=== PATIENT | female | born 1970 | race Caucasian/White ===

== ENCOUNTER 2020-06-28 00:46 | Emergency (ER) | payer OTHER ==
[~2020-06-28 00:46] MED LIST: AZITHROMYCIN250 MG PO; BUSPAR5 MG PO; CYMBALTA20 MG PO; IBUPROFEN800 MG PO; KEFLEX250 MG PO; LASIX20 MG PO; MEDROL 4MG DOSEP4 MG PO; METFORMIN HCL500 MG PO; NAPROXEN500 MG PO; NORCO 5-325 TA1 EAC1 PO; NORCO 5-325 TA1 EACH PO; NORTRIPTYLINE H50 MG PO; PERCOCET 5-3251 EACH PO; ROBAXIN750 MG PO; SYNTHROID125 MCG PO
[2020-06-28] MEDS ORDERED: BACTRIM DS TAB1 EACH PO (01:15)
== END 2020-06-28 01:30 | disposition home or self-care (01) ==
LOC: FER 00:46
DX: H11.31 Conjunctival hemorrhage, right eye (principal); L72.3 Sebaceous cyst; E11.9 Type 2 diabetes mellitus without complications; F17.200 Nicotine dependence, unspecified, uncomplicated; Z79.84 Long term (current) use of oral hypoglycemic drugs
CPT/HCPCS: 99282

== ENCOUNTER 2021-02-09 21:24 | Emergency (ER) | payer OTHER ==
[~2021-02-09 21:24] MED LIST changes: +BACTRIM DS TAB1 EACH PO
[2021-02-09 22:46] LABS: BASOPHIL 1.5 % (0-2); EOSINOPHIL 2.8 % (0-5); HCT 45.5 % (37.0-47.0); HGB 15.9 g/dl (12.5-16.0); LYMPHOCYTE 45.8 % (15-48); MCH 33.8 pg (25.0-31.0); MCHC 34.9 g/dL (32.0-36.0); MCV 96.6 fL (78.0-100.0); MONOCYTE 7.6 % (0-12); MPV 11.5 fL (6.0-9.5); NRBC 0; PLT 199 K/uL (150-400); RBC 4.71 M/uL (4.20-5.40); RDW 11.7 % (11.5-14.0); WBC 6.5 K/uL (4.0-10.5)
[2021-02-09 23:22] LABS: ALBUMIN 3.8 g/dL (3.4-5.0); BILIRUBIN - TOTAL 0.3 mg/dL (0.2-1.0); BUN/CREAT RATIO (CALC) 14.6 RATIO; CORONAVIRUS 2019 SARS-COV-2 NEGATIVE (NEGATIVE); CREATININE 0.82 mg/dL (0.51-0.95); GLOBULIN (CALCULATION) 3.8 g/dL; INFLUENZA A NAA NEGATIVE (NEGATIVE); MAGNESIUM 2.2 mg/dL (1.8-2.4); POTASSIUM 4.1 mmol/L (3.5-5.1); TOTAL PROTEIN 7.6 g/dL (6.4-8.2)
== END 2021-02-10 02:16 | disposition home or self-care (01) ==
LOC: FER 21:24
PROVIDERS: Emergency Medicine
DX: R07.89 Other chest pain (principal); E05.00 Thyrotoxicosis with diffuse goiter without thyrotoxic crisis or storm; F17.200 Nicotine dependence, unspecified, uncomplicated; Z20.822 Contact with and (suspected) exposure to COVID-19; Z79.84 Long term (current) use of oral hypoglycemic drugs; Z79.899 Other long term (current) drug therapy
CPT/HCPCS: 36415; 71045; 80053; 83735; 84443; 84484; 85025; 93005; U0002

== ENCOUNTER 2021-02-28 13:51 | Emergency (ER) | payer OTHER ==
[2021-02-28 14:27] LABS: BASOPHIL 0.4 % (0-2); EOSINOPHIL 0.8 % (0-5); HCT 41.3 % (37.0-47.0); HGB 14.3 g/dl (12.5-16.0); LYMPHOCYTE 39.6 % (15-48); MCH 33.6 pg (25.0-31.0); MCHC 34.6 g/dL (32.0-36.0); MCV 97.2 fL (78.0-100.0); MONOCYTE 7.8 % (0-12); MPV 11.7 fL (6.0-9.5); NRBC 0; PLT 121 K/uL (150-400); RBC 4.25 M/uL (4.20-5.40); RDW 12.1 % (11.5-14.0); WBC 2.5 K/uL (4.0-10.5)
[2021-02-28 14:41] LABS: ALBUMIN 3.4 g/dL (3.4-5.0); BILIRUBIN - TOTAL 0.2 mg/dL (0.2-1.0); BUN/CREAT RATIO (CALC) 12.5 RATIO; CREATININE 0.88 mg/dL (0.51-0.95); GLOBULIN (CALCULATION) 3.6 g/dL; POTASSIUM 4.1 mmol/L (3.5-5.1)
== END 2021-02-28 15:38 | disposition home or self-care (01) ==
LOC: FER 13:51
PROVIDERS: Nurse Practitioner Family
DX: U07.1 COVID-19 (principal)
CPT/HCPCS: 36415; 80053; 85025; J2405; J7030; U0002

== ENCOUNTER → 2022-02-28 | Day surgery (SDC) | payer OTHER ==
[~2022-02-28] VITALS: Ht 162.6 cm; Wt 78.9 kg
[~2022-02-28] MED LIST changes: +BACLOFEN 10MG T10 MG PO; +GLUCOTROL10 MG PO; +LANTUS SOL100 UNIT/1 SC; +MELOXICAM15 MG PO; -SYNTHROID125 MCG PO; +SYNTHROID150 MCG PO; +VITAMIN B12 SC
== END | disposition home or self-care (01) ==
LOC: FAS 06:00
DX: K63.5 Polyp of colon (principal); K58.0 Irritable bowel syndrome with diarrhea; K22.2 Esophageal obstruction; K44.9 Diaphragmatic hernia without obstruction or gangrene; K31.9 Disease of stomach and duodenum, unspecified; K64.8 Other hemorrhoids; E11.9 Type 2 diabetes mellitus without complications; F17.210 Nicotine dependence, cigarettes, uncomplicated; Z79.4 Long term (current) use of insulin; E05.00 Thyrotoxicosis with diffuse goiter without thyrotoxic crisis or storm; Z79.890 Hormone replacement therapy
CPT/HCPCS: J1610; J2704; J7120